=== PATIENT | male | born 1995 | race Caucasian/White ===

== ENCOUNTER 2025-01-05 08:55 | Emergency (ER) | payer OTHER, SELFPAY ==
--- OUTSIDE RECORDS SUMMARY | 2025-01-05 08:57 | XMS_ITS | Referral Summary ---
Author Organization [facility] Address [address] [place] [address] Care Team Providers Care Drafter Electrical Name Role Phone Isrrael Chapa MD Primary Care Provider [phone] Allergies No known active allergies Medications PARoxetine (PAXIL) 20 mg tablet TAKE 1 TABLET BY MOUTH EVERY DAY IN THE MORNING 90 tablet 1 06/20/2024 Active Active Problems Problem Noted Date Diagnosed Date Class 2 severe obesity due t o excess calories with serious comorbidity and body mass index (BMI) of 36.0 to 36.9 in adult 07/25/2024 Mixed hyperlipidemia 05/25/2020 Anxiety 11/17/2017 Assessment & Plan (11/17/2017 8:23 AM DIRECTOR OF DISTANCE LEARNING): Plan to start Paxil 20 mg daily. Snoring 11/17/2017 Assessment & Plan (11/17/2017 8:23 AM DIRECTOR OF DISTANCE LEARNING): Will arrange home sleep study. Witnessed episode of apnea 11/17/2017 Assessment & Plan (11/17/2017 8:23 AM DIRECTOR OF DISTANCE LEARNING): As above. Nasal congestion 11/17/2017 Assessment & Plan (11/17/2017 8:23 AM DIRECTOR OF DISTANCE LEARNING): Start Flonase Nasal spray as directed. Obesity (BMI 30-39.9) 11/17/2017 Assessment & Plan (11/17/2017 8:24 AM DIRECTOR OF DISTANCE LEARNING): Obesity is increased by 6 lbs. Discussed the patient's BMI. The BMI is above average; BMI management plan is completed. General weight loss/lifestyle modification strategies discussed (elicit support from others; identify saboteurs; non-food rewards, etc). Left wrist injury 05/18/2017 Mixed anxiety depressive disorder 12/05/2016 Overview (02/23/2017): Depression with anxiety Pharyngitis 03/30/2015 Overview (02/23/2017): Pharyngitis Sinusitis 10/23/2014 Overview (02/23/2017): Sinusitis Attention deficit disorder 07/11/2013 Overview (02/23/2017): ADHD (attention deficit hyperactivity disorder) Resolved Problems Problem Noted Date Diagnosed Date Resolved Date History of glandular fever 10/22/2012 0 08/16/2018 Overview (02/24/2017): History of infectious mononucleosis Medical examinations/reports status 1995 08/16/2018 Overview (02/23/2017): Health care maintenance Immunizations Immunization Administration Dates Next Due DTaP 05/09/2000, 7,06/27/1996,04/29 DTaP 5 Pertussis 05/09/2000, 7,06/27/1996,04/29,02/27/1996 HPV, Quadrivalent 07/12/2013,07/11/2013 Hep B Vaccine 01/29/1996,1995 Hep B, Adolescent or Pediatric 6,06/27/1996,01/29/1996,12/28 HiB 06/27/1996, 6,04/29/1996,04/29,02/27/1996,02/27/1996 Hib (HbOC) 03/28/1997, 6,04/29/1996,02/26 Hib (PRP-OMP) 03/28/1997 IPV 05/09/2000, 0,05/09/2000,03/28,03/28/1997,06/27/1996,06/27/1996 ,04/29/1996,02/27/1996 Influenza, Unspecified 08/20/2022(Deferr ed: Patient Refused),08/20/2021(Deferred: Patient Refused),08/12/2021(Deferred: Patient Refused),08/12/2021(Deferred: Patient Refused),07/21/2020(Deferred: Patient Refused),11/20/2019(Deferred: Patient Refused),10/18/2018(Deferred: Patient Refused) MMR 05/09/2000, 0,05/09/2000,12/30,12/30/1996 Meningococcal MCV4P (Menactra) 07/11/2013,2012 Meningococcal Polysaccharide (Menomune) 02/03/2010,02/03/2010 OPV 06/27/1996,04/29/1996,02/27/1996 Tdap 08/01/2007,08/01/2007 Varicella 12/30/1998,12/30/1998,12/30/1998 Social History Tobacco Use Types Packs/Day Years Used Date Smoking Tobacco: Never Smokeless Tobacco: Never Tobacco Cessation:Counseling Given: Not Answered Alcohol Use Standard Drinks/Week Comments Yes 0 (1 standard drink = 0.6 oz pur e alcohol) AUDIT-C Answer Date Recorded Q1: How often do you have a drink containing alc ohol? Monthly or less 03/06/2023 Q2: How many drinks containi ng alcohol do you have on a typical day when you are drinking? 3 or 4 03/06/2023 Q3: How often do you have si x or more drinks on one occasion? Less than monthly 03/06/2023 PHQ-2 Answer Date Recorded PHQ-2 Total Score (If total score is 3 or more points, staff should administer the PHQ-9) 0 03/06/2023 Sex and Gender Information Value Date Recorded Sex Assigned at Not on file Legal Sex Male 12:05 PM DIRECTOR OF DISTANCE LEARNING Gender Identity Not on file Sexual Orientation Not on file Last Filed Vital Signs Vital Sign Reading Time Taken Comments Blood Pressure 146/72 07/20/2023 4:14 PM CDT Pulse 100 07/20/2023 4:14 PM CDT Temperature 37.1 C (98.8 F) 07/20/2023 4:14 PM CDT Respiratory Rate 16 07/20/2023 4:14 PM CDT Oxygen Saturation 97% 07/20/2023 4:14 PM CDT Inhaled Oxygen Concentration - - Weight 108 kg (238 lb) 07/20/2023 4:14 PM CDT Height 175.3 cm (5' 9 ) 07/20/2023 4:14 PM CDT Body Mass Index 35.15 07/20/2023 4:14 PM CDT Plan of Treatment Not on file Insurance [employer] Member Subscriber Plan / Payer (Ef fective 2020-Present) Name:Gautam Akers Relation to Subscriber:Self Name:Gautam Akers Payer ID:[id number] (NA) Group ID:[id number] Type:[employer] HMO/PPO Address: [address] [place] [address] CIG Advance Directives For more information, please contact: [phone] Documents on File Type Date Recorded Patient Box Spring Upholsterer Expl anation ADVANCE DIRECTIVE 12/18/2017 7:06 PM ADVANCE DIRECTIVE 12/18/2017 Advance Di rective Checklist Care Teams Drafter Electrical Relationship Specialty Start Date End Date Isrrael Chapa MD [address] [place] [address] PCP - General Family Medicine 08/14/22
--- OUTSIDE RECORDS SUMMARY | 2025-01-05 08:57 | XMS_ITS | Clinical Summary ---
Author Organization [facility] Address [address] [place] [address] Care Team Providers Care Door Builder Name Role Phone Isrrael Chapa MD Primary Care Provider [phone] Allergies No known active allergies Medications PARoxetine [...] 11/17/2017 Assessment & Plan (11/17/2017 8:23 AM CONSTRUCTION INSPECTOR): Plan to start Paxil 20 mg daily. Snoring 11/17/2017 Assessment & Plan (11/17/2017 8:23 AM CONSTRUCTION INSPECTOR): Will arrange home sleep study. Witnessed episode of apnea 11/17/2017 Assessment & Plan (11/17/2017 8:23 AM CONSTRUCTION INSPECTOR): As above. Nasal congestion 11/17/2017 Assessment & Plan (11/17/2017 8:23 AM CONSTRUCTION INSPECTOR): Start Flonase Nasal spray as directed. Obesity (BMI 30-39.9) 11/17/2017 Assessment & Plan (11/17/2017 8:24 AM CONSTRUCTION INSPECTOR): Obesity is increased by 6 lbs. Discussed [...] 02/03/2010,02/03/2010 OPV 06/27/1996,04/29/1996,02/27/1996 Tdap 08/01/2007,08/01/2007 Varicella 12/30/1998,12/30/1998,12/30/1998 Surgical History Surgery Date Site/Laterality Comments TONSILLECTOMY AND ADENOIDECTOMY 11/20/2001 - 11/19/2002 Medical History Medical History Date Comments Attention deficit disorder 07/11/2013 Mixed anxiety depressive disorder 2016 History of mononucleosis 10/22/2012 Family History Medical History Relation Name Comments Hypertension Father Hypertension; Heart disease Maternal Grandmother Thyroid disease Mother Thyroid dise ase; Breast cancer Paternal Grandmother Relation Name Status Comments Father Alive Maternal Grandfather Alive Maternal Grandmother Alive Mother Alive Paternal Grandfather Alive Paternal Grandmother Social History Tobacco Use Types Packs/Day Years [...] on file Legal Sex Male 12:05 PM CONSTRUCTION INSPECTOR Gender Identity Not on file Sexual Orientation Not on file History Length Weight Head Circum Date/Time Gestation Age D/C Weight APGARs Delivery Method Feeding 1995 Vaginal, Spontaneous 6-2 product normal Obstetrics History Last Filed Vital Signs Vital Sign Reading [...] 07/20/2023 4:14 PM CDT Plan of Treatment Health Maintenance Due Date Last Done Comments Hepatitis C Screening 1995 Varicella Vaccines (2 of 2 - 2-dose childhood series) 1999 12/30/1998, 12/30/1998, 12/30/1998 HPV Vaccines (2 - Male 3-dose series) 08/09/2013 07/12/2013, 07/11/2013 DTaP/Tdap/Td Vaccine (8 - Td or Tdap) 08/01/2017 08/01/2007, 08/01/2007, 05/09/2000, Additional history exists Regular Well Visit/Exam 18-64 05/21/2021 05/21/2020 Depression Screening 03/06/2024 03/06/2023, 08/12/2021, 05/21/2020, Additional history exists Covid-19 Vaccine ( season) 2024 07/18/2021, 06/27/2021 Influenza Vaccine (#1) 2024 Hepatitis B Screening Completed 06/27/1996 , 06/27/1996, 01/29/1996, Additional history exists Pneumococcal vaccine <65 Aged Out No longer eligible based on patient's age to complete this topic Insurance HEALTHCARE Member Subscriber Plan / Payer (Ef fective 2020-Present) Name:Gautam Akers Relation to Subscriber:Self Name:Gautam Akers Payer ID:[id number] ([facility]) Group ID:[id number] Type:[employer] HMO/PPO Address: [address] [place] [address] Advance Directives For more information, please contact: [phone] Documents on File Type Date Recorded Patient Senior Pricing Analyst Expl anation ADVANCE DIRECTIVE 12/18/2017 7:06 PM ADVANCE DIRECTIVE 12/18/2017 Advance Di rective Checklist Care Teams Door Builder Relationship Specialty Start Date End Date Isr[place] [address] PCP - General Family Medicine 08/14/22
[2025-01-05 09:02] VITALS: BP 128/77; PULSE 100; RESP 20; TEMP 36.6; O2SAT 100
--- NOTE | 2025-01-05 09:44 | ED.GENADULT ---
HPI - General Adult General Chief complaint: Upper Respiratory Infection Stated complaint: Congestion/Nausea/Headache Source: patient Mode of arrival: ambulatory Limitations: no limitations History of Present Illness HPI narrative: Patient presents for evaluation of sick symptoms for last 3 days. Symptoms include hot flashes, chills, generalized body aches, cough, shortness of breath, and nausea. He denies any vomiting or diarrhea. His son had similar symptoms but his symptoms have resolved. Pt previously was using a vape but stopped using recently. He has tried tylenol cold and sinus, dayquil and nyquil for his symptoms. Symptom persist. Related Data Home Medications ?Medication ?Instructions ?Recorded ?Confirmed ?Last Taken ?Type paroxetine HCl 20 mg tablet mg PO 01/05/25 Unknown History Allergies Allergy/AdvReac Type Severity Reaction Status Date / Time vancomycin Allergy Intermediate Hives / Verified 04/18/16 22:34 Red Face Review of Systems Review of Systems: CONSTITUTIONAL: Reports hot flashes and chills EYES: Denies visual changes, redness, or discharge. ENT: Denies rhinorrhea, congestion, sore throat, or otalgia. CARDIOVASCULAR: Denies chest pain, palpitations, or edema. RESPIRATORY: Reports cough and SOB GASTROINTESTINAL: Reports nausea. Denies abdominal pain, vomiting, or diarrhea. GENITOURINARY: Denies dysuria or hematuria. SKIN: Denies rash or itching. MUSCULOSKELETAL: Reports generalized body aches NEUROLOGIC: Denies headache, numbness, dizziness, or weakness. PSYCHIATRIC: Denies anxiety or depression. [facility]LY [facility] Past Medical History Medical History No pertinent past medical history Surgical History Surgical History No pertinent past surgical history Family History Family History Mother Family history non-contributory Social History Social History Smoking status: Former smoker Tobacco type: e-cigarettes/vaping Substance use: never Living arrangements: with family Gender identity (if verbalized by the patient): Male Sexual Orientation (if Verbalized by the Patient): Straight or Heterosexual Spiritual care concerns: No Exam Narrative: GENERAL: Appears acutely ill but nontoxic. Well-nourished, and in no acute distress. HEAD: Normocephalic, atraumatic. EYES: PERRLA and EOMI. ENT: Nares clear, no rhinorrhea or epistaxis. Mucous membranes moist. Oropharynx without tonsillar hypertrophy exudate or other lesions. Bilateral TMs pearly medina nonbulging NECK: Supple. No adenopathy or masses. No carotid bruits or JVD CHEST: Clear to auscultation. No respiratory distress. No wheezes rales or rhonchi HEART: Regular rate and rhythm. No murmur heard. Normal peripheral pulses. ABDOMEN: Soft, nontender, nondistended, normal active bowel sounds. EXTREMITIES: Normal range of motion. No edema. SKIN: Warm, dry, no rash. NEURO: No focal deficits. Alert and oriented x3. PSYCH: Normal mood and affect.. Course Course Emergency Course: This is a 29-year-old male who presented for evaluation of sick symptoms. Influenza A positive. Will treat with Tamiflu. Increase hydration. [id number] agents for symptom management. Follow up with primary provider. Go to the ER for worsening symptoms. Patient in agreement with plan of care. Level of Care: Express Care Visit Vital Signs Vital signs: Vital Signs Temperature 36.6 C 01/05/25 09:02 Pulse Rate 100 01/05/25 09:02 Respiratory Rate 20 01/05/25 09:02 Blood Pressure 128/77 01/05/25 09:02 Pulse Oximetry 100 01/05/25 09:02 Oxygen Delivery Room Air 01/05/25 09:02 Temperature 36.6 C 01/05/25 09:02 Pulse Rate 100 01/05/25 09:02 Respiratory Rate 20 01/05/25 09:02 Blood Pressure 128/77 01/05/25 09:02 Pulse Oximetry 100 01/05/25 09:02 Oxygen Delivery Room Air 01/05/25 09:02 Medical Decision Making Vital Signs Vital Signs: Vital Signs Temperature 36.6 C 01/05/25 09:02 Pulse Rate 100 01/05/25 09:02 Respiratory Rate 20 01/05/25 09:02 Blood Pressure 128/77 01/05/25 09:02 Pulse Oximetry 100 01/05/25 09:02 Oxygen Delivery Room Air 01/05/25 09:02 Temperature 36.6 C 01/05/25 09:02 Pulse Rate 100 01/05/25 09:02 Respiratory Rate 20 01/05/25 09:02 Blood Pressure 128/77 01/05/25 09:02 Pulse Oximetry 100 01/05/25 09:02 Oxygen Delivery Room Air 01/05/25 09:02 Discharge Plan Discharge Clinical Impression: Influenza A Patient Disposition: Home, Self-Care Condition: Stable Instructions: Antibiotic Form, Influenza (ED) Patient Language: Hebrew Prescriptions: New oseltamivir [Tamiflu] 75 mg capsule 75 mg PO Q12H 5 Days Qty: 10 0RF ondansetron 4 mg tablet,disintegrating 4 mg PO Q6H PRN (Reason: nausea and vomiting) Qty: 15 0RF No Action paroxetine HCl 20 mg tablet PO Follow-up/Referrals: Harms,Isrrael Gunter M.D. [Primary Care Provider] - Time of Disposition: 09:43
[2025-01-05 10:19] LABS: EDCOVIDSCREEN Negative (Negative); EDINFLUASCREEN Positive (Negative); EDINFLUBSCREEN Negative (Negative)
== END 2025-01-05 09:45 | disposition home or self-care (01) ==
PROVIDERS: Emergency Provider Nurse Practitioner; PCP Family Medicine
DX: J10.1 Influenza due to other identified influenza virus with other respiratory manifestations (principal); Z87.891 Personal history of nicotine dependence; Z20.822 Contact with and (suspected) exposure to COVID-19
CPT/HCPCS: 87426; 87804; 99203; G0463